=== PATIENT | male | born 2000 | race Caucasian/White ===

== ENCOUNTER 2021-06-08 11:47 | Emergency (ER) | payer BC, SELFPAY ==
[2021-06-08 12:18] VITALS: BP 125/85; PULSE 75; RESP 18; TEMP 36.4; O2SAT 100
--- NOTE | 2021-06-08 12:54 | ED.URI ---
HPI - URI/Sore Throat General Chief Complaint: Upper Respiratory Infection Stated Complaint: Sore Throat Source: patient and RN notes reviewed Limitations: no limitations History of Present Illness HPI Narrative: The unvaccinated patient, previously healthy mostly non-smoker/nondrinker,, presents with 1/2-week history of mostly sore throat. No fever, cough, loss of taste/smell, CP, rash, S OB, vomiting/diarrhea, hoarseness, tooth ache, trismus. Symptoms are mild, worse with eating/swallowing Related Data Allergies Allergy/AdvReac Type Severity Reaction Status Date / Time Sulfa (Sulfonamide Allergy Mild Other Verified 06/08/21 12:17 Antibiotics) skin cleanser combination Allergy Unknown EYE Verified 06/08/21 12:17 no. 10 IRRITATION [Rosanil] skin cleanser combination Allergy Unknown EYE Verified 06/08/21 12:17 no.23 IRRITATION [Sumadan] sulfacetamide Allergy Unknown EYE Verified 06/08/21 12:17 IRRITATION sulfur [Avar] Allergy Unknown EYE Verified 06/08/21 12:17 IRRITATION urea [Rosula] Allergy Unknown EYE Verified 06/08/21 12:17 IRRITATION Review of Systems Review of Systems: General/Constitutional: No weight loss,fever Eyes: N0: Redness,discharge Ears/Nose/Throat: No: Epistaxis,ear discharge Respiratory: Denies: Hemoptysis Gastrointestinal: No Vomiting, Bleeding-rectal Skin: No Lumps, eruption Neurologic: No Focal Weakness,Sz Hematologic: Denies: Petechiae/Purpura Psychiatric: No: Suicida ideationl All Other Systems: Reviewed and Negative PMFSH Social History Social History Smoking status: Never smoker Alcohol intake: never Comments At time of signature, agree with nursing past medical, surgical, social and family history. There is no relevant family history pertinent to the presenting complaint Exam Narrative: General Appearance: Well appearing, Well nourished EYE: PERRLA, Conjunctiva clear Ears: Auditory canal normal, TM normal Nose: Rhinorrhea, Mucousal erythema Mouth/Throat: MM moist, Uvula midline, Pharyngeal erythema Neck: Supple, No adenopathy Respiratory: No respiratory distress, Breath sounds equal, Clear to auscultation Cardiovascular: RRR, No JVD Musculoskeletal: Non tender, Normal strength Skin: Warm, Dry Neurological: A&O x3, CN II-XII intact Psychiatric: Normal mood, Normal affect Course Vital Signs Vital signs: Vital Signs Temperature 97.6 F 06/08/21 12:18 Pulse Rate 75 06/08/21 12:18 Respiratory Rate 18 06/08/21 12:18 Blood Pressure 125/85 06/08/21 12:18 Pulse Oximetry 100 06/08/21 12:18 Temperature 97.6 F 06/08/21 12:18 Pulse Rate 75 06/08/21 12:18 Respiratory Rate 18 06/08/21 12:18 Blood Pressure 125/85 06/08/21 12:18 Pulse Oximetry 100 06/08/21 12:18 MDM - URI/Sore Throat Lab Data Labs: Lab Results 06/08/21 Range/Units 12:35 POC SARS CoV-2 Ag Negative (Negative) Strep Screen Presumptive Negative *(Reference Range: Negative)* Discharge Plan Discharge Clinical Impression: Odynophagia Patient Disposition: Home, Self-Care Condition: Stable Instructions: Pharyngitis (ED) Prescriptions: New azithromycin 250 mg tablet See Rx Instructions .ROUTE .COMPLEX Qty: 6 RF: 0 lidocaine HCl [Lidocaine Viscous] 2 % solution 5 ml MUCOUS MEM QID PRN (Reason: pain) Qty: 100 RF: 0 Follow-up/Referrals: Hector Freed MD [Primary Care Provider] -
== END 2021-06-08 13:00 | disposition home or self-care (01) ==
PROVIDERS: Emergency Provider Emergency Medicine; PCP Family Medicine
DX: R13.10 Dysphagia, unspecified (principal); Z20.822 Contact with and (suspected) exposure to COVID-19
CPT/HCPCS: 87081; 87426; 87880; 99213; C9803; G0463

== ENCOUNTER 2021-09-27 07:07 | Outpatient (CLI) | payer BC, SELFPAY ==
--- NOTE | ~2021-09-27 | MR_ITS ---
EXAMINATION: MR foot RT wo con DATE: 09/27/2021 07:55 INDICATION: Right foot injury and pain. Stepped on by cow. TECHNIQUE: Magnetic resonance imaging (MRI) of the right foot was performed without intravenous contr ast. Sequences included sagittal T1-weighted FSE and STIR FSE, long-axis PD-weighted FS FSE and PD-we ighted FSE, and short-axis PD-weighted FS FSE and T1-weighted FSE. COMPARISON: None FINDINGS: Bone alignment is normal. No fracture. There is bone marrow edema involving anterior proces s of calcaneus, head of talus, and cuneiforms without visible fracture line, consistent with stress r eaction. There is a skin marker dorsal to lateral cuneiform. 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 Lisfranc ligament is intact. The flexor and extensor tendons are normal. IMPRESSION: 1. Bone marrow edema involving head of talus, anterior process of calcaneus, and the cuneiforms witho ut visible fracture line, consistent with stress reaction. Note that CT or radiographs would be more sensitive for chip avulsion fracture fragments. Reviewed, dictated and finalized at location A. AINER FILLER IMPRESSION: 1. Bone marrow edema involving head of talus, anterior process of calcaneus, an d the cuneiforms without visible fracture line, consistent with stress reaction . Note that CT or radiographs would be more sensitive for chip avulsion fractur e fragments.
== END 2021-09-27 07:08 ==
PROVIDERS: PCP Family Medicine; Visit Provider Family Medicine
DX: S99.921A Unspecified injury of right foot, initial encounter (principal); X58.XXXA Exposure to other specified factors, initial encounter
CPT/HCPCS: 73718

== ENCOUNTER 2022-04-10 17:00 | Emergency (ER) | payer BC, SELFPAY ==
[2022-04-10 17:10] VITALS: BP 119/82; PULSE 61; RESP 18; TEMP 36.4; O2SAT 99
--- NOTE | 2022-04-10 17:13 | ED.SKABFB ---
HPI - Skin/Abscess/Foreign Bdy General Chief complaint: Skin/Abscess/Foreign Body Stated complaint: rash Time Seen by Provider: 04/10/22 17:13 Source: patient Mode of arrival: ambulatory Limitations: no limitations History of Present Illness HPI narrative: 22 yo M presents with poison mario to bilateral arms and chest for 3 days. c/o itching. hx of similar poison mario reaction and has had prednisone in the past. States creams don't really help me . 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 All systems reviewed and negative except as noted above. Related Data Allergies Allergy/AdvReac Type Severity Reaction Status Date / Time skin cleanser combination AdvReac Mild EYE Verified 04/10/22 17:06 no. 10 IRRITATION [Rosanil] skin cleanser combination AdvReac Mild EYE Verified 04/10/22 17:06 no.23 IRRITATION [Sumadan] Sulfa (Sulfonamide AdvReac Mild Hives Verified 04/10/22 17:06 Antibiotics) sulfacetamide AdvReac Mild EYE Verified 04/10/22 17:06 IRRITATION sulfur [Avar] AdvReac Mild EYE Verified 04/10/22 17:06 IRRITATION urea [Rosula] AdvReac Mild EYE Verified 04/10/22 17:06 IRRITATION Review of Systems Review of Systems: CONSTITUTIONAL: Denies fever, chills, or sweats. EYES: Denies visual changes, redness, or discharge. ENT: Denies rhinorrhea, congestion, sore throat, or otalgia. CARDIOVASCULAR: Denies chest pain, palpitations, or edema. RESPIRATORY: Denies cough or dyspnea. GASTROINTESTINAL: Denies abdominal pain, nausea, vomiting, or diarrhea. GENITOURINARY: Denies dysuria or hematuria. SKIN: Reports itchy rash to both arms and chest. MUSCULOSKELETAL: Denies back pain, joint pain, or myalgia. NEUROLOGIC: Denies headache, numbness, or weakness. PSYCHIATRIC: Denies anxiety or depression. All other systems reviewed are negative, except as documented in HPI. [facility] Past Medical History Medical History Appendicitis Pituitary dwarfism Social History Social History (Updated 10/02/21 @ 09:52 by Haley Hernandes Dario) Alcohol intake: never Comments At time of signature, agree with nursing past medical, surgical, social and family history. There is no relevant family history pertinent to the presenting complaint. Exam Narrative: GENERAL: This is a well-nourished, well-developed patient, in no apparent distress. HEAD: normocephalic, atraumatic. EYES: PERRL. Sclera clear/white. Vision is grossly intact. EARS: External ears normal NOSE: External nose normal NECK: Neck supple, non-tender without lymphadenopathy, masses or thyromegaly. CARDIOVASCULAR: Regular rate and rhythm without murmurs, gallops, or rubs. RESPIRATORY: Clear to auscultation. Breath sounds equal bilaterally. No wheezes, rales, or rhonchi. SKIN: warm, Dry, intact, good texture and turgor. Erythematous raised rash to both forearms and chest. A few vesicles noted to L wrist. NEURO: awake, alert, and oriented to person, place and time. There were no obvious focal neurologic abnormalities. EXTREMITIES: No joint tenderness, effusion, or edema noted. Course Course Level of Care: Express Care Visit Vital Signs Vital signs: Vital Signs Temperature 36.4 C 04/10/22 17:10 Pulse Rate 61 04/10/22 17:10 Respiratory Rate 18 04/10/22 17:10 Blood Pressure 119/82 04/10/22 17:10 Pulse Oximetry 99 04/10/22 17:10 Oxygen Delivery Room Air 04/10/22 17:10 Temperature 36.4 C 04/10/22 17:10 Pulse Rate 61 04/10/22 17:10 Respiratory Rate 18 04/10/22 17:10 Blood Pressure 119/82 04/10/22 17:10 Pulse Oximetry 99 04/10/22 17:10 Oxygen Delivery Room Air 04/10/22 17:10 Reviewed MDM - Skin/Abscess/Foreign Bdy MDM Narrative Medical decision making narrative: Patient is aware of diagnosis, understands and agrees to treatment plan. Anticipatory guidance given. Patient agrees to follow-up as directed and is aware of reasons
== END 2022-04-10 17:21 | disposition home or self-care (01) ==
PROVIDERS: Emergency Provider Nurse Practitioner Family; PCP Family Medicine
DX: L25.5 Unspecified contact dermatitis due to plants, except food (principal); E23.0 Hypopituitarism
CPT/HCPCS: 99213; G0463

== ENCOUNTER 2022-04-23 19:18 | Emergency (ER) | payer BC, SELFPAY ==
[2022-04-23 19:38] VITALS: BP 133/95; PULSE 71; RESP 18; TEMP 36.5; O2SAT 99
--- NOTE | 2022-04-23 19:51 | ED.GENADULT ---
HPI - General Adult General Chief complaint: Skin/Abscess/Foreign Body Stated complaint: spider bite History of Present Illness HPI narrative: 22 y/o male. PMHx non-contributory. [facility] with acute complaint of possible spider bite located to LT chest wall. Client reports to have initially noticed area while at work 24 hours ago, felt a 'bite', however did not actually visualize culprit. He notes worsening erythema and 'burning sensation to site. No fever, chills, myalgia. No neck pain or stiffness. No chest tightness or dyspnea. No additional areas of integumentary concern. He is non-diabetic. No additional acute c/o upon PE. Related Data Allergies Allergy/AdvReac Type Severity Reaction Status Date / Time skin cleanser combination AdvReac Mild EYE Verified 04/23/22 19:57 no. 10 IRRITATION [Rosanil] skin cleanser combination AdvReac Mild EYE Verified 04/23/22 19:57 no.23 IRRITATION [Sumadan] Sulfa (Sulfonamide AdvReac Mild Hives Verified 04/23/22 19:57 Antibiotics) sulfacetamide AdvReac Mild EYE Verified 04/23/22 19:57 IRRITATION sulfur [Avar] AdvReac Mild EYE Verified 04/23/22 19:57 IRRITATION urea [Rosula] AdvReac Mild EYE Verified 04/23/22 19:57 IRRITATION Review of Systems Review of Systems: CONSTITUTIONAL: Denies fever, chills, sweats. EYES: Denies visual changes, redness, discharge. ENT: Denies rhinorrhea, congestion, sore throat, otalgia. CARDIOVASCULAR: Denies chest pain, palpitations, edema. RESPIRATORY: Denies dyspnea, wheezing, cough GASTROINTESTINAL: Denies abdominal pain, nausea, vomiting, diarrhea. GENITOURINARY: Denies dysuria, hematuria, abnormal discharge SKIN: Positive insect bite LT chest wall. MUSCULOSKELETAL: Denies acute back pain, joint pain, or myalgia. NEUROLOGIC: Denies numbness, or focal weakness. PSYCHIATRIC: Denies anxiety or depression. [facility] Past Medical History Medical History Appendicitis Pituitary dwarfism Social History Social History Alcohol intake: never Exam Narrative: GENERAL: This is a well-nourished, well-developed adult, in no apparent distress. HEAD: normocephalic, atraumatic. EYES: Sclera clear/white. EARS: External ears normal. NOSE: External nose normal. THROAT: Mucous membranes moist. NECK: Neck supple, non-tender without lymphadenopathy, masses or thyromegaly. CARDIOVASCULAR: Regular rate and rhythm without murmurs, gallops, or rubs. RESPIRATORY: Clear to auscultation. GASTROINTESTINAL: Abdomen soft, non-tender. SKIN: warm, intact good texture and turgor. With insect bite located to left upper chest wall. No residual FB. Area is indurated with approximately 10 cm of surrounding erythema. No fluctuance or discharge at site. There are no necrotic changes. Surrounding tissue blanches well. NEURO: Alert, active, and age appropriate. No focal neurologic deficits. EXTREMITIES: Negative. Course Course Level of Care: Express Care Visit Vital Signs Vital signs: Vital Signs Temperature 36.5 C 04/23/22 19:38 Pulse Rate 71 04/23/22 19:38 Respiratory Rate 18 04/23/22 19:38 Blood Pressure 133/95 H 04/23/22 19:38 Pulse Oximetry 99 04/23/22 19:38 Oxygen Delivery Room Air 04/23/22 19:38 Temperature 36.5 C 04/23/22 19:38 Pulse Rate 71 04/23/22 19:38 Respiratory Rate 18 04/23/22 19:38 Blood Pressure 133/95 H 04/23/22 19:38 Pulse Oximetry 99 04/23/22 19:38 Oxygen Delivery Room Air 04/23/22 19:38 The patient has been informed that they may have pre-hypertension or Hypertension based on a BP reading in the clinic. It is recommended that the patient call the primary care provider listed on their discharge instructions or a physician of their choice as soon as possible (within 1-2week) to arrange follow up for further evaluation of pos
== END 2022-04-23 20:04 | disposition home or self-care (01) ==
PROVIDERS: Emergency Provider Nurse Practitioner Adult Health; PCP Family Medicine
DX: L03.313 Cellulitis of chest wall (principal); S20.362A Insect bite (nonvenomous) of left front wall of thorax, initial encounter; W57.XXXA Bitten or stung by nonvenomous insect and other nonvenomous arthropods, initial encounter; E23.0 Hypopituitarism
CPT/HCPCS: 99213; G0463

== ENCOUNTER 2022-05-23 10:02 | Emergency (ER) | payer BC, SELFPAY ==
--- NOTE | ~2022-05-23 | XR_ITS ---
XR abdomen/kub 1V DATE: 05/23/2022 11:02 INDICATION: Hematuria TECHNIQUE: AP projection, 2 views COMPARISON: 11/11/2018 CT abdomen pelvis FINDINGS: No urinary tract calcification is noted. No significant abnormal calcification is identifie d. The psoas shadows are intact. No visceromegaly. No bowel obstruction. Included skeletal structures are unremarkable. IMPRESSION: Negative Reviewed, dictated and finalized at Location [facility]. Reviewed, dictated and finalized at location B. IMPRESSION: Negative
[2022-05-23 10:11] VITALS: BP 128/85; PULSE 75; RESP 18; TEMP 36.8; O2SAT 100
--- NOTE | 2022-05-23 10:14 | ED.MALEGU ---
HPI - Male Genitourinary General Chief complaint: Urogenital-Male Stated complaint: Male Urogenital Time Seen by Provider: 05/23/22 10:15 Source: patient and RN notes reviewed Mode of arrival: ambulatory Limitations: no limitations History of Present Illness HPI Narrative: 22 y/o male presented for c/o blood in urine, onset today. Endorses associated burning with urination, frequency and urgency with urinating small amounts today. Denies injury/trauma. He denies associated abdominal pain, flank pain, urethral discharge, nausea, vomiting, diarrhea, fevers or chills. Denies concern for STD. He denies significant medical history. He states he has been hydrated. Related Data Allergies Allergy/AdvReac Type Severity Reaction Status Date / Time skin cleanser combination AdvReac Mild EYE Verified 05/23/22 10:17 no. 10 IRRITATION [Rosanil] skin cleanser combination AdvReac Mild EYE Verified 05/23/22 10:17 no.23 IRRITATION [Sumadan] Sulfa (Sulfonamide AdvReac Mild Hives Verified 05/23/22 10:17 Antibiotics) sulfacetamide AdvReac Mild EYE Verified 05/23/22 10:17 IRRITATION sulfur [Avar] AdvReac Mild EYE Verified 05/23/22 10:17 IRRITATION urea [Rosula] AdvReac Mild EYE Verified 05/23/22 10:17 IRRITATION Review of Systems Review of Systems: CONSTITUTIONAL: Denies body aches, fever, chills, or sweats. CARDIOVASCULAR: Denies chest pain, palpitations, or edema. RESPIRATORY: Denies cough or dyspnea. GASTROINTESTINAL: Denies abdominal pain, nausea, vomiting, or diarrhea. GENITOURINARY: Reports dysuria, frequency, urgency, hematuria SKIN: Denies rash, itching, or wounds. MUSCULOSKELETAL: Denies back pain or myalgia. [facility] Past Medical History Medical History Appendicitis Pituitary dwarfism Social History Social History Alcohol intake: never Comments At time of signature, I have reviewed and agree with nursing past medical, surgical, social and family history unless otherwise noted. Please see nursing chart for further information. There is no relevant family history pertinent to the presenting complaint Exam Narrative: GENERAL: Well-appearing and in no acute distress. ENT: Mucous membranes pink and moist. CHEST: Clear to auscultation. HEART: Regular rate and rhythm. ABDOMEN: Soft, nontender, nondistended, normal active bowel sounds. No CVA tenderness SKIN: Warm, dry, no rash. NEURO: No focal deficits. Alert and oriented x3. Gait steady. PSYCH: Normal affect. Course Course Emergency Course: Patient is aware of diagnosis, understands and agrees to treatment plan. Anticipatory guidance given. Patient agrees to follow-up as directed and is aware of reasons to seek care at the emergency department. Portions of this record may have been created with voice recognition software Level of Care: Express Care Visit Vital Signs Vital signs: Vital Signs Temperature 98.2 F 05/23/22 10:11 Pulse Rate 75 05/23/22 10:11 Respiratory Rate 18 05/23/22 10:11 Blood Pressure 128/85 05/23/22 10:11 Pulse Oximetry 100 05/23/22 10:11 Oxygen Delivery Room Air 05/23/22 10:11 Temperature 98.2 F 05/23/22 10:11 Pulse Rate 75 05/23/22 10:11 Respiratory Rate 18 05/23/22 10:11 Blood Pressure 128/85 05/23/22 10:11 Pulse Oximetry 100 05/23/22 10:11 Oxygen Delivery Room Air 05/23/22 10:11 Reviewed MDM - Male Genitourinary MDM Narrative Medical decision making narrative: Physical Exam findings unremarkable, UA shows +leuk, blood, nitrite, ketones; KUB negative. Will send urine for culture and Urine specimen collected for GC, chlamydia, trich. Informed Pt will be contacted w/ results when they become available if they are positive. Discussed with patient that it takes up to 7 days for results of cultures to be released and declines treatment at this t
== END 2022-05-23 12:38 | disposition home or self-care (01) ==
PROVIDERS: Emergency Provider Nurse Practitioner Family; PCP Family Medicine
DX: N39.0 Urinary tract infection, site not specified (principal); E23.0 Hypopituitarism
CPT/HCPCS: 74018; 81003; 87077; 87086; 87186; 87491; 87591; 87661; 99213; G0463

== ENCOUNTER 2022-06-05 09:40 | Emergency (ER) | payer BC, SELFPAY ==
--- NOTE | ~2022-06-05 | CT_ITS ---
EXAMINATION: CT abdomen pelvis w con DATE: 06/05/2022 12:10 INDICATION: Hematuria TECHNIQUE: Computed tomography (CT) of the abdomen and pelvis was performed with 100 mL Omnipaque-350 intravenous contrast. Automated exposure control and iterative reconstruction technique were employe d. The dose-length product was 434.71 mGy-cm. COMPARISON: CT dated 11/11/2018 FINDINGS: Lung bases are clear. Heart size is normal. No pericardial or pleural effusion. Liver, gallbladder, s pleen, pancreas, bilateral adrenal glands and kidneys are normal. No abnormal bowel wall thickening o r obstruction. Normal appendix. Prominent diffuse edematous-appearing wall thickening of the bladder suspicious for cystitis. No free intraperitoneal gas or fluid. No pathologically enlarged abdominal o r pelvic lymphadenopathy. Bones are unremarkable. IMPRESSION: 1. Prominent wall thickening of the bladder consistent with cystitis. Correlate with urinalysis. Reviewed, dictated and finalized at location A.
[2022-06-05 10:06] VITALS: BP 130/93; PULSE 75; RESP 17; TEMP 36.5; O2SAT 100
[2022-06-05 10:38] LABS: RBC Urine >75 /hpf (0-2); WBC Urine >75 /hpf
[2022-06-05 10:40] LABS: Add Urine Microscopic? YES; Appearance Urine Cloudy (Clear); Color Urine Red (Yellow)
--- NOTE | 2022-06-05 11:13 | ED.GENADULT ---
HPI - General Adult General Chief complaint: Urogenital-Male Stated complaint: hematuria Time Seen by Provider: 06/05/22 11:03 History of Present Illness HPI narrative: 22-year-old male here for evaluation of hematuria. Patient states he has been experiencing hematuria for the past 2 weeks, has been treated for UTI by an urgent care and his primary care provider with Macrobid and Keflex, states that hematuria did improve after taking these antibiotics but returned today after finishing his course. Patient states that it seems as though he is urinating just blood, and the blood is not mixed in with his urine. He denies any systemic symptoms and otherwise feels well. He was tested for STIs which were negative. Related Data Allergies Allergy/AdvReac Type Severity Reaction Status Date / Time skin cleanser combination AdvReac Mild EYE Verified 05/28/22 16:06 no. 10 IRRITATION [Rosanil] skin cleanser combination AdvReac Mild EYE Verified 05/28/22 16:06 no.23 IRRITATION [Sumadan] Sulfa (Sulfonamide AdvReac Mild Hives Verified 05/28/22 16:06 Antibiotics) sulfacetamide AdvReac Mild EYE Verified 05/28/22 16:06 IRRITATION sulfur [Avar] AdvReac Mild EYE Verified 05/28/22 16:06 IRRITATION urea [Rosula] AdvReac Mild EYE Verified 05/28/22 16:06 IRRITATION Review of Systems Review of Systems: Gen.: Denies fevers or chills Eyes: Denies eye pain or visual change ENT: Denies congestion Respiratory: Denies shortness of breath or cough CV: Denies chest pain or palpitations GI: Denies abdominal pain nausea, emesis or diarrhea reports hematuria. Denies burning, urgency, frequency Musculoskeletal: Denies back pain or muscle pain Neuro: Denies numbness, tingling, weakness or focal weakness Skin: Denies rash Except as documented, all other systems reviewed and negative PMFSH Past Medical History Medical History Appendicitis Pituitary dwarfism Social History Social History Smoking status: Former smoker Tobacco type: e-cigarettes/vaping Alcohol intake: never Exam Narrative: APPEARANCE: Well appearing, no pain in distress, well-nourished. Head: Normocephalic and atraumatic. EYES: PERRLA/EOMI, conjunctivae clear NOSE: No nasal drainage EARS: External ear normal in appearance THROAT: Oropharynx is clear. Mucous membranes are moist. NECK: Supple. No adenopathy, no masses. RESPIRATORY: Airway patent, respirations nonlabored. Clear to auscultation bilaterally, no rales, rhonchi, wheezing. CARDIOVASCULAR: Regular rate and rhythm without murmurs, rubs, or gallops. ABDOMINAL: Normoactive bowel sounds. Soft, nontender, nondistended. No rebound tenderness or guarding. MUSCULOSKELETAL: Extremities are warm and well-perfused. Moves all extremities well. No edema. NEURO: Normal speech. No focal neurologic deficits. SKIN: Skin is warm and dry. No rashes. PSYCHIATRIC: Normal affect/mood.. Course Consultations Consultation #1: Spoke with Yoanna, urology nurse practitioner, agrees with close follow-up, patient will likely need cystoscopy. Recommends Augmentin for antibiotic choice. Date: 06/05/22 Time: 12:46 Vital Signs Vital signs: Vital Signs Temperature 97.7 F 06/05/22 10:06 Pulse Rate 75 06/05/22 10:06 Respiratory Rate 17 06/05/22 10:06 Blood Pressure 130/93 H 06/05/22 10:06 Pulse Oximetry 100 06/05/22 10:06 Oxygen Delivery Room Air 06/05/22 10:06 Temperature 97.7 F 06/05/22 10:06 Pulse Rate 75 06/05/22 10:06 Respiratory Rate 17 06/05/22 10:06 Blood Pressure 130/93 H 06/05/22 10:06 Pulse Oximetry 100 06/05/22 10:06 Oxygen Delivery Room Air 06/05/22 10:06 Medical Decision Making MDM Narrative Medical decision making narrative: 22-year-old male here for evaluation of intermittent hematuria over the past 2 weeks, initially impr
[2022-06-05 11:29] LABS: Basophils Absolute Auto 0.1 K/mm3 (0.0-0.1); Basophils Percent Auto 0.4 % (0.2-1.2); Eosinophils Absolute Auto 0.2 K/mm3 (0-0.3); Eosinophils Percent Auto 1.5 % (0-4.4); Hematocrit 51.7 % (42.0-52.0); Hemoglobin 17.2 g/dL (14.0-18.0); Immature Granulocyte Absolute 0.04 K/mm3 (0.00-0.031); Immature Granulocyte Percent A 0.3 % (0-0.5); Lymphocytes Absolute Auto 1.28 K/mm3 (0.9-3.2); Mean Corpuscular HGB Conc 33.3 g/dl (32-36); Mean Corpuscular Volume 93.2 fl (80-100); Mean Platelet Volume 7.8 fl (7.4-10.4); Monocytes Absolute Auto 0.8 K/mm3 (0.1-0.6); Monocytes Percent Auto 7.1 % (2.6-8.5); Neutrophils Absolute Auto 9.3 K/mm3 (1.3-6.7); Neutrophils Percent Auto 79.7 % (45.5-73.1); Platelet Count Result 242 k/mm3 (150-375); Red Blood Count 5.55 M/mm3 (4.6-6.20); White Blood Count 11.6 K/mm3 (4.5-10.0)
[2022-06-05 11:41] LABS: Alanine Aminotransferase 51 U/L (6-50); Albumin Level 4.9 g/dL (3.5-5.1); Alkaline Phosphatase 61 U/L (38-126); Anion Gap 13 mmol/L (8-16); Aspartate Amino Transferase 42 U/L (17-59); Bilirubin,Total 0.9 mg/dL (0.2-1.3); Blood Urea Nitrogen 16 mg/dL (9-20); Calcium 9.5 mg/dL (8.4-10.2); Carbon Dioxide 26 mmol/L (22-30); Chloride 100 mmol/L (98-107); Estimated CRCL calculation 95 ml/min; Estimated Glomerular Filt Rate > 60; Glucose 101 mg/dL (65-110); Potassium 4.1 mmol/L (3.4-5.0); Sodium 139 mmol/L (137-145)
== END 2022-06-05 12:44 | disposition home or self-care (01) ==
PROVIDERS: Physician Assistant; Emergency Provider Emergency Medicine; PCP Family Medicine
DX: N30.90 Cystitis, unspecified without hematuria (principal); Z87.891 Personal history of nicotine dependence
CPT/HCPCS: 36415; 74177; 80053; 81001; 85025; 87077; 87086; 87186; 99284; Q9967

== ENCOUNTER 2022-09-25 08:20 | Emergency (ER) | payer BC, SELFPAY ==
[2022-09-25] VITALS (7 sets, daily range): BP systolic 109–138; BP diastolic 85–101; PULSE 55–71; RESP 14–19; TEMP 37.4; O2SAT 97–100
--- NOTE | ~2022-09-25 | CT_ITS ---
EXAMINATION: CT abdomen pelvis wo con DATE: 09/25/2022 09:32 INDICATION: Left lower quadrant abdominal pain. Left flank pain. TECHNIQUE: Computed tomography (CT) of the abdomen and pelvis was performed without intravenous contr ast. Automated exposure control and iterative reconstruction technique were employed. The dose-length product was 200.62 mGy-cm. COMPARISON: CT abdomen and pelvis 06/05/2022 FINDINGS: The visualized portions of the lung bases are clear without pneumonia or pleural effusion. The heart size is normal. No pericardial effusion. The liver, gallbladder, spleen, pancreas, adrenal glands, and kidneys are normal. There is no urolithiasis. There are no dilated loops of bowel. The ap pendix is normal. There are no pathologically enlarged lymph nodes. There is no free intraperitoneal fluid. The bones are unremarkable. IMPRESSION: 1. No etiology for the patient's symptoms. Reviewed, dictated and finalized at location A. [employer]
--- NOTE | 2022-09-25 09:00 | ED.GENADULT ---
HPI - General Adult General Chief complaint: Urogenital-Male Stated complaint: back pain Time Seen by Provider: 09/25/22 08:41 Source: RN notes reviewed History of Present Illness HPI narrative: Patient presents emergency department from home for left-sided abdominal flank pain. Patient states symptoms began at 6 PM last night. The pain is located in the left side of the abdomen and radiates around to the back described as sharp and stabbing in nature. States that sitting still does improve the pain and that movement makes the pain worse he denies any fevers or chills he denies any nausea vomiting diarrhea or any other symptoms. States he has not taken anything for Related Data Allergies Allergy/AdvReac Type Severity Reaction Status Date / Time skin cleanser combination AdvReac Mild EYE Verified 05/28/22 16:06 no. 10 IRRITATION [Rosanil] skin cleanser combination AdvReac Mild EYE Verified 05/28/22 16:06 no.23 IRRITATION [[place]] Sulfa (Sulfonamide AdvReac Mild Hives Verified 05/28/22 16:06 Antibiotics) sulfacetamide AdvReac Mild EYE Verified 05/28/22 16:06 IRRITATION sulfur [Avar] AdvReac Mild EYE Verified 05/28/22 16:06 IRRITATION urea [Rosula] AdvReac Mild EYE Verified 05/28/22 16:06 IRRITATION Review of Systems Review of Systems: Gen.: Denies fevers or chills ENT: Denies congestion Respiratory: Denies shortness of breath or cough CV: Denies chest pain or palpitations GI: See HPI Musculoskeletal: Denies back pain or muscle pain Neuro: Denies numbness, tingling, weakness or focal weakness Skin: Denies rash Except as documented, all other systems reviewed and negative [facility] Past Medical History Medical History Appendicitis Pituitary dwarfism Social History Social History Smoking status: Former smoker Tobacco type: e-cigarettes/vaping Alcohol intake: never Exam Narrative: APPEARANCE: No acute distress, nontoxic, resting in bed HEENT: Normocephalic, atraumatic, OMM RESPIRATORY: No respiratory distress, clear to auscultation bilaterally with no rhonchi wheezing or rales CARDIOVASCULAR: RRR s murmur ABDOMINAL: Soft nondistended tender palpation left upper quadrant no tenderness in left lower quadrant, right lower quadrant and right upper quadrant no rebound or guarding, no flank tenderness MUSCULOSKELETAl: Moves all extremities. No clubbing, cyanosis or edema. NEURO: Awake and alert. Following commands, speech normal, no focal deficits SKIN:: Warm, dry. Normal Color PSYCHIATRIC: Normal affect/mood Course Course Emergency Course: Reviewed patient's old records including previous visits for UTI as well as urine culture showing ESBL Called and discussed with CRISTINE Lenz or Dr. Smith for urology. Patient had followed up in the office after the last UTI had not had a cystoscopy at this time she recommends patient be placed on Augmentin 875 for 2 weeks with follow-up in the office Patient states that they are feeling much better at this time. States abdominal pain has resolved. Repeat abdominal exam shows the patient's abdomen to be soft and nontender. Discussed with patient results of workup and diagnosis. Discussed need for follow-up with primary care physician, reasons to return to the emergency department in proper use of medication. Patient understands and agrees to current treatment plan. Discussed my conversation with urology Vital Signs Vital signs: Vital Signs Temperature 99.3 F 09/25/22 08:35 Pulse Rate 71 09/25/22 08:35 Respiratory Rate 18 09/25/22 08:35 Blood Pressure 138/101 H 09/25/22 08:35 Pulse Oximetry 99 09/25/22 08:35 Oxygen Delivery Room Air 09/25/22 08:35 Temperature 99.3 F 09/25/22 08:35 Pulse Rate 55 L 09/25/22 09:48 Respiratory Rate 14 09/25/22 09:48 Blood Pressure 119/89 09/25/22 08:46 Pulse Oximetry 9
[2022-09-25] MEDS: SODIUM CHLORIDE 0.9% IV 1,000 ML 999 ML IV CONT (09:13)
[2022-09-25] MEDS: KETOROLAC 30 MG/ML VIAL (*BKC) IV PUSH (09:13)
[2022-09-25 09:18] LABS: Basophils Absolute Auto 0.1 K/mm3 (0.0-0.1); Basophils Percent Auto 0.6 % (0.2-1.2); Eosinophils Absolute Auto 0.2 K/mm3 (0-0.3); Eosinophils Percent Auto 1.8 % (0-4.4); Hematocrit 47.9 % (42.0-52.0); Hemoglobin 15.7 g/dL (14.0-18.0); Immature Granulocyte Absolute 0.05 K/mm3 (0.00-0.031); Immature Granulocyte Percent A 0.5 % (0-0.5); Lymphocytes Absolute Auto 2.12 K/mm3 (0.9-3.2); Lymphocytes Percent Auto 22.2 % (18.3-44.2); Mean Corpuscular HGB Conc 32.8 g/dl (32-36); Mean Corpuscular Hemoglobin 30.1 pg (26-34); Mean Corpuscular Volume 91.8 fl (80-100); Mean Platelet Volume 7.7 fl (7.4-10.4); Monocytes Absolute Auto 1.2 K/mm3 (0.1-0.6); Monocytes Percent Auto 12.4 % (2.6-8.5); Neutrophils Percent Auto 62.5 % (45.5-73.1); Platelet Count Result 232 k/mm3 (150-375); Red Blood Count 5.22 M/mm3 (4.6-6.20); Red Cell Distribution Width 12.4 % (11.5-14.5); White Blood Count 9.6 K/mm3 (4.5-10.0)
[2022-09-25 09:19] LABS: Appearance Urine Cloudy (Clear); Bilirubin Urine Negative (Negative); Blood Urine 2+ (Negative); Color Urine Yellow (Yellow); Glucose Urine UA Negative (Negative); Ketones Urine Negative (Negative); Leukocyte Esterase Ur 2+ LEU/UL (Negative); Nitrate Urine Positive (Negative); Protein Urine 1+ mg/dL (Negative); Urobilinogen Urine 0.2 mg/dL (<2.0); pH Urine 5.5 (5.0-9.0)
[2022-09-25 09:24] LABS: Add Urine Microscopic? YES; Bacteria Urine 1+ /hpf; Mucus Urine Rare /lpf; RBC Urine >75 /hpf (0-2); WBC Clumps Urine Present /HPF; WBC Urine >75 /hpf
[2022-09-25 09:30] LABS: Alanine Aminotransferase 42 U/L (6-50); Albumin Level 4.3 g/dL (3.5-5.1); Alkaline Phosphatase 65 U/L (38-126); Anion Gap 8 mmol/L (8-16); Aspartate Amino Transferase 31 U/L (17-59); Bilirubin,Total 0.7 mg/dL (0.2-1.3); Blood Urea Nitrogen 10 mg/dL (9-20); Calcium 8.9 mg/dL (8.4-10.2); Carbon Dioxide 24 mmol/L (22-30); Chloride 108 mmol/L (98-107); Estimated CRCL calculation 115 ml/min; Estimated Glomerular Filt Rate > 60; Glucose 94 mg/dL (65-110); Lipase 48 U/L (23-300); Potassium 4.4 mmol/L (3.4-5.0); Sodium 140 mmol/L (137-145)
[2022-09-25] MEDS: AMOXICILLIN/CLAVULANATE K 875-125 MG TAB 1 TABLET PO (10:04)
== END 2022-09-25 10:32 | disposition home or self-care (01) ==
PROVIDERS: Emergency Provider Emergency Medicine; PCP Family Medicine
DX: N39.0 Urinary tract infection, site not specified (principal); Z87.891 Personal history of nicotine dependence
CPT/HCPCS: 36415; 74176; 80053; 81001; 83690; 85025; 87077; 87086; 87186; 96361; 96374; 99284; A9270; J1885; J7030